=== PATIENT | female | born 1930 | race Caucasian/White ===

== ENCOUNTER → 2016-07-25 | Outpatient (REF) | payer MEDICARE ==
[~2016-07-25] MED LIST: /WARF25TA; ACET-654 PO; ACET65TA; AMOX500C PO; ASCO500T PO; BISA5TA; CALC600T34 PO; CALCCHW12; COLA100C2; DIGO0.12 PO; DOCU10CA PO; DRIS50002 PO; DULC10SU2 PR; ENEMENE3 PR; FLEEENE4 PR; HYDR12.55 PO; HYDR25TA6; LISI5TAB; LOPE2TAB PO; LOPR1TAB6 PO; LOSA50TA20 PO; MAGN400T5 PO; META28.35 PO; METAMUCIL; MILKSUS PO; MULTCAP PO; NYST100024 TOP; PERC5TAB8; PERC7.5T8; SIMV10TA2 PO; THERGRAN; TOPR25TA PO; TRAZ50TA4 PO; TYLE1TAB5 PO; TYLE500T78 PO; VITA-130 PO; VITA100T5; VITA200C; VITA400C2 PO; XARE15TA PO; ZOCO10TA PO
[2016-07-25 10:15] LABS: MEAN CORPUSCULAR HEMOGLOBIN 32.4 pg (27.0-33.0); MEAN CORPUSCULAR HGB CONC 32.7 g/dl (32.0-36.5); RED CELL DISTRIBUTION WIDTH 13.5 % (11.5-14.5); WHITE BLOOD COUNT 6.5 K/mm3 (4.0-10.0)
== END ==
PROVIDERS: ATTEND Internal Medicine
DX: Z51.81 Encounter for therapeutic drug level monitoring (principal); Z79.01 Long term (current) use of anticoagulants

== ENCOUNTER → 2016-08-11 | Outpatient (REF) | payer MEDICARE ==
[2016-08-11 15:17] LABS: ALBUMIN 3.5 GM/DL (3.2-5.2); ALBUMIN/GLOBULIN RATIO 0.88 (1.00-1.93); ALKALINE PHOSPHATASE 75 U/L (45-117); ALT/SGPT 20 U/L (12-78); ANION GAP 9 MEQ/L (8-16); AST/SGOT 17 U/L (15-37); BILIRUBIN,DIRECT 0.2 MG/DL (0.0-0.2); BILIRUBIN,TOTAL 0.6 MG/DL (0.2-1.0); BLOOD UREA NITROGEN 20 MG/DL (7-18); CALCIUM LEVEL 8.4 MG/DL (8.8-10.2); CARBON DIOXIDE LEVEL 29 MEQ/L (21-32); CHLORIDE LEVEL 103 MEQ/L (98-107); CREATININE FOR GFR 0.91 MG/DL (0.55-1.02); GLOMERULAR FILTRATION RATE > 60.0 (>32); GLUCOSE, FASTING 130 MG/DL (83-110); POTASSIUM SERUM 4.5 MEQ/L (3.5-5.1); SODIUM LEVEL 141 MEQ/L (136-145); TOTAL PROTEIN 7.5 GM/DL (6.4-8.2)
== END ==
PROVIDERS: ATTEND Internal Medicine
DX: R63.5 Abnormal weight gain (principal)

== ENCOUNTER → 2016-08-22 | Outpatient (REF) | payer MEDICARE ==
[2016-08-22 10:57] LABS: MEAN CORPUSCULAR HEMOGLOBIN 31.7 pg (27.0-33.0); MEAN CORPUSCULAR HGB CONC 32.7 g/dl (32.0-36.5); MEAN CORPUSCULAR VOLUME 97.1 fl (80.0-96.0); RED CELL DISTRIBUTION WIDTH 12.9 % (11.5-14.5); WHITE BLOOD COUNT 8.4 K/mm3 (4.0-10.0)
== END ==
PROVIDERS: ATTEND Internal Medicine
DX: Z51.81 Encounter for therapeutic drug level monitoring (principal); Z70.1 Counseling related to patient's sexual behavior and orientation

== ENCOUNTER → 2016-09-18 | Outpatient (REF) | payer MEDICARE ==
[~2016-09-18] MED LIST changes: +ALBU83IN INH; +LASI20TA PO; +LASI40TA PO; +MUCI600T34 PO
[2016-09-18 11:22] LABS: MEAN CORPUSCULAR HEMOGLOBIN 32.4 pg (27.0-33.0); MEAN CORPUSCULAR HGB CONC 32.9 g/dl (32.0-36.5); MEAN CORPUSCULAR VOLUME 98.3 fl (80.0-96.0); RED CELL DISTRIBUTION WIDTH 12.5 % (11.5-14.5)
[2016-09-18 12:04] LABS: CALCIUM LEVEL 8.5 MG/DL (8.8-10.2); CREATININE FOR GFR 0.99 MG/DL (0.55-1.02); GLOMERULAR FILTRATION RATE 56.9 (>32); POTASSIUM SERUM 4.4 MEQ/L (3.5-5.1)
--- NOTE | 2016-09-18 17:06 | REP ---
AP chest x-ray: Single view. History: Cough and wheezing. Comparison chest x-ray is from February 02, 2015. Findings: Cardiomegaly is observed unchanged. Interstitial markings are somewhat crowded at the bases particularly in the left base. The aorta is tortuous. Pulmonary vasculature is not increased. No pleural effusion is seen. The patient's face and chin overlie the apices today. Impression: Prominent interstitial markings in the left base. These are suggestive of Iman B lines consistent with some degree of CHF. No acute infiltrate is appreciated. Signed by Samson Mason MD 09/18/2016 07:20 P
== END ==
PROVIDERS: ATTEND Internal Medicine
DX: R05 Cough (principal); R06.2 Wheezing; I10 Essential (primary) hypertension

== ENCOUNTER → 2016-09-19 | Outpatient (REF) | payer MEDICARE | PROVIDERS: ATTEND Internal Medicine | DX: E56.9 Vitamin deficiency, unspecified (principal) ==

== ENCOUNTER 2016-09-21 17:36 | Emergency (ER) | payer MEDICARE ==
[~2016-09-21] VITALS: Ht 160 cm; Wt 87.1 kg
[~2016-09-21 17:36] MED LIST changes: -ALBU83IN INH; -LASI20TA PO; -LASI40TA PO; -MUCI600T34 PO
[2016-09-21] MEDS ORDERED: ALBU83IN INH (18:13)
[2016-09-21] MEDS ORDERED: LASI20TA PO (18:13)
[2016-09-21] MEDS ORDERED: LASI40TA PO (18:13)
[2016-09-21 18:14] LABS: BASO % 0.3 % (0.0-1.0); EOS # 0.2 K/mm3 (0.0-0.50); EOS % 2.3 % (0.0-3.0); LARGE UNSTAINED CELL # 0.1 K/mm3 (0.0-0.4); LARGE UNSTAINED CELL % 1.8 % (0.0-4.0); LYMPH % 24.4 % (24.0-44.0); MEAN CORPUSCULAR HEMOGLOBIN 31.5 pg (27.0-33.0); MEAN CORPUSCULAR HGB CONC 32.8 g/dl (32.0-36.5); MEAN CORPUSCULAR VOLUME 96.2 fl (80.0-96.0); MONO # 0.5 K/mm3 (0.0-0.8); MONO % 5.9 % (0.0-5.0); NEUTROPHILS % 65.2 % (36.0-66.0); PLATELET COUNT, AUTOMATED 215 k/mm3 (150-450); RED CELL DISTRIBUTION WIDTH 12.6 % (11.5-14.5); WHITE BLOOD COUNT 7.7 K/mm3 (4.0-10.0)
[2016-09-21] MEDS ORDERED: MUCI600T34 PO (18:17)
[2016-09-21 18:19] LABS: ABG BASE EXCESS 4.6 (-2.0-2.0); ABG HCO3 29.5 MEQ/L (22.0-26.0); ABG PARTIAL PRESSURE CO2 44.9 mmHg (35.0-45.0); ABG PARTIAL PRESSURE O2 75.6 mmHg (75.0-100.0); ABG STANDARD HCO3 28.6 MEQ/L (22.0-26.0); ABG TOTAL CO2 30.9 MEQ/L (23.0-31.0); ABG pH (ARTERIAL) 7.436 UNITS (7.350-7.450)
[2016-09-21 18:20] LABS: INR 1.94
[2016-09-21 18:30] VITALS: BP 119/65
[2016-09-21] MEDS ORDERED: METOPROLOL TART 25 MG TABLET PO ONE (18:30)
[2016-09-21 18:34] LABS: ANION GAP 9 MEQ/L (8-16); BLOOD UREA NITROGEN 25 MG/DL (7-18); CALCIUM LEVEL 8.6 MG/DL (8.8-10.2); CARBON DIOXIDE LEVEL 32 MEQ/L (21-32); CHLORIDE LEVEL 101 MEQ/L (98-107); CREATININE FOR GFR 0.87 MG/DL (0.55-1.02); FREE T4 1.22 NG/DL (0.76-1.46); GLOMERULAR FILTRATION RATE > 60.0 (>32); GLUCOSE, FASTING 147 MG/DL (83-110); POTASSIUM SERUM 3.7 MEQ/L (3.5-5.1); SODIUM LEVEL 142 MEQ/L (136-145)
--- NOTE | 2016-09-21 18:52 | REP ---
CHEST, PA AND LATERAL: COMPARISON: 09/18/2016 The technique utilized in obtaining the radiograph has magnified the cardiac silhouette and accentuated the interstitial markings. Cardiomegaly, status quo. Increased interstitial markings accentuated by technique, status quo. No new abnormal opacities. No change in the osseous structures. IMPRESSION: No significant change from the prior exam. There is cardiomegaly and evidence to suggest mild interstitial edema. Signed by Willie Cabrera DO 09/21/2016 07:18 P
[2016-09-21 20:12] LABS: DIGOXIN LEVEL < 0.1 NG/ML (0.5-2.0)
[2016-09-21 23:01] VITALS: BP 123/71
--- NOTE | 2016-09-22 08:54 | ECGEPIP ---
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
== END 2016-09-21 23:03 | disposition home or self-care (01) ==
LOC: EDBD 17:36 → M ED 17:54
DX: I48.91 Unspecified atrial fibrillation (principal); R05 Cough; I51.7 Cardiomegaly; I10 Essential (primary) hypertension; E78.5 Hyperlipidemia, unspecified; K58.9 Irritable bowel syndrome, unspecified; M81.0 Age-related osteoporosis without current pathological fracture; F03.90 Unspecified dementia, unspecified severity, without behavioral disturbance, psychotic disturbance, mood disturbance, and anxiety; Z79.01 Long term (current) use of anticoagulants; Z79.899 Other long term (current) drug therapy

== ENCOUNTER → 2016-09-22 | Outpatient (REF) | payer MEDICARE ==
[~2016-09-22] MED LIST changes: +ALBU83IN INH; +LASI20TA PO; +LASI40TA PO; +MUCI600T34 PO
[2016-09-22 11:09] LABS: ANION GAP 9 MEQ/L (8-16); BLOOD UREA NITROGEN 21 MG/DL (7-18); CALCIUM LEVEL 8.5 MG/DL (8.8-10.2); CARBON DIOXIDE LEVEL 30 MEQ/L (21-32); CHLORIDE LEVEL 105 MEQ/L (98-107); CREATININE FOR GFR 0.79 MG/DL (0.55-1.02); GLOMERULAR FILTRATION RATE > 60.0 (>32); GLUCOSE, FASTING 119 MG/DL (83-110); POTASSIUM SERUM 4.1 MEQ/L (3.5-5.1); SODIUM LEVEL 144 MEQ/L (136-145)
== END ==
PROVIDERS: ATTEND Internal Medicine
DX: I50.9 Heart failure, unspecified (principal)

== ENCOUNTER → 2016-09-25 | Outpatient (REF) | payer MEDICARE ==
[2016-09-25 13:43] LABS: MEAN CORPUSCULAR HEMOGLOBIN 32.6 pg (27.0-33.0); MEAN CORPUSCULAR HGB CONC 33.9 g/dl (32.0-36.5); RED CELL DISTRIBUTION WIDTH 12.5 % (11.5-14.5); WHITE BLOOD COUNT 7.6 K/mm3 (4.0-10.0)
[2016-09-25 14:00] LABS: ALBUMIN 3.4 GM/DL (3.2-5.2); ALBUMIN/GLOBULIN RATIO 0.87 (1.00-1.93); ALKALINE PHOSPHATASE 73 U/L (45-117); ALT/SGPT 25 U/L (12-78); ANION GAP 7 MEQ/L (8-16); AST/SGOT 21 U/L (15-37); BILIRUBIN,TOTAL 0.6 MG/DL (0.2-1.0); BLOOD UREA NITROGEN 20 MG/DL (7-18); CALCIUM LEVEL 8.6 MG/DL (8.8-10.2); CARBON DIOXIDE LEVEL 32 MEQ/L (21-32); CHLORIDE LEVEL 102 MEQ/L (98-107); CHOLESTEROL LEVEL 131 MG/DL (<200); CREATININE FOR GFR 0.82 MG/DL (0.55-1.02); GLOMERULAR FILTRATION RATE > 60.0 (>32); GLUCOSE, FASTING 117 MG/DL (83-110); POTASSIUM SERUM 4.2 MEQ/L (3.5-5.1); SODIUM LEVEL 141 MEQ/L (136-145); TOTAL PROTEIN 7.3 GM/DL (6.4-8.2); TRIGLYCERIDES LEVEL 125 MG/DL (<150)
== END ==
PROVIDERS: ATTEND Internal Medicine
DX: I50.9 Heart failure, unspecified (principal)

== ENCOUNTER → 2016-10-24 | Outpatient (REF) | payer MEDICARE ==
[2016-10-24 11:08] LABS: MEAN CORPUSCULAR HEMOGLOBIN 30.3 pg (27.0-33.0); MEAN CORPUSCULAR HGB CONC 31.7 g/dl (32.0-36.5); MEAN CORPUSCULAR VOLUME 95.4 fl (80.0-96.0); RED CELL DISTRIBUTION WIDTH 12.6 % (11.5-14.5); WHITE BLOOD COUNT 7.2 K/mm3 (4.0-10.0)
== END ==
PROVIDERS: ATTEND Internal Medicine
DX: Z51.81 Encounter for therapeutic drug level monitoring (principal); Z79.01 Long term (current) use of anticoagulants

== ENCOUNTER → 2016-11-16 | Outpatient (REF) | payer MEDICARE ==
--- NOTE | 2016-11-16 15:02 | REP ---
RIGHT FEMUR SERIES: Two single view. HISTORY: Injury in a fall. FINDINGS: A single AP view of the mid right femur is presented. There is a hip prosthesis stem in the proximal femur and a distal femur prosthetic component from the knee replacement is seen. No fracture is noted on this single AP view. Signed by Samson Mason MD 11/16/2016 03:59 P
--- NOTE | 2016-11-16 15:02 | REP ---
RIGHT KNEE SERIES: Two views. HISTORY: Decreased range of motion. Status post right knee replacement. Pain after a fall. FINDINGS: Prosthetic components appear well aligned with respect to each other and their [place] bones. No fractures seen. There is some diffuse osteopenia. IMPRESSION: No fracture or other acute bony abnormality. Signed by Samson Mason MD 11/16/2016 03:59 P
--- NOTE | 2016-11-16 15:04 | REP ---
AP VIEW OF THE PELVIS: Single view. HISTORY: Injury in a fall. FINDINGS: Bilateral femoral head replacements are seen. No hip or pelvic fracture is observed on this single AP view. Signed by Samson Mason MD 11/16/2016 03:59 P
== END ==
PROVIDERS: ATTEND Internal Medicine
DX: M25.551 Pain in right hip (principal); M25.552 Pain in left hip; Z96.653 Presence of artificial knee joint, bilateral

== ENCOUNTER → 2016-11-22 | Outpatient (REF) | payer MEDICARE ==
[2016-11-22 11:06] LABS: MEAN CORPUSCULAR HEMOGLOBIN 32.4 pg (27.0-33.0); MEAN CORPUSCULAR HGB CONC 33.1 g/dl (32.0-36.5); MEAN CORPUSCULAR VOLUME 97.9 fl (80.0-96.0); WHITE BLOOD COUNT 6.7 K/mm3 (4.0-10.0)
== END ==
PROVIDERS: ATTEND Internal Medicine
DX: Z79.899 Other long term (current) drug therapy (principal)

== ENCOUNTER → 2016-12-26 | Outpatient (REF) | payer MEDICARE ==
[2016-12-26 11:06] LABS: MEAN CORPUSCULAR HEMOGLOBIN 32.1 pg (27.0-33.0); MEAN CORPUSCULAR HGB CONC 34.2 g/dl (32.0-36.5); MEAN CORPUSCULAR VOLUME 93.9 fl (80.0-96.0); RED CELL DISTRIBUTION WIDTH 13.7 % (11.5-14.5); WHITE BLOOD COUNT 6.8 K/mm3 (4.0-10.0)
== END ==
PROVIDERS: ATTEND Internal Medicine
DX: Z51.81 Encounter for therapeutic drug level monitoring (principal); Z79.01 Long term (current) use of anticoagulants

== ENCOUNTER → 2017-01-23 | Outpatient (REF) | payer MEDICARE ==
[~2017-01-23] MED LIST changes: -ACET-654 PO; +ACET1TAB17 PO; +ENEMENE16 PR; -ENEMENE3 PR; +LOPE2CAP PO; -LOPE2TAB PO; -MUCI600T34 PO; +MUCI600T37 PO; -NYST100024 TOP; +NYST1POW9 TOP; +TRAZ50TA11 PO; -TRAZ50TA4 PO; -VITA-130 PO; -VITA400C2 PO; +VITA400C7 PO; +VITA500T PO
[2017-01-23 09:31] LABS: MEAN CORPUSCULAR HEMOGLOBIN 31.8 pg (27.0-33.0); MEAN CORPUSCULAR HGB CONC 33.7 g/dl (32.0-36.5); MEAN CORPUSCULAR VOLUME 94.4 fl (80.0-96.0); RED CELL DISTRIBUTION WIDTH 13.9 % (11.5-14.5); WHITE BLOOD COUNT 6.2 K/mm3 (4.0-10.0)
== END ==
PROVIDERS: ATTEND Internal Medicine
DX: Z51.81 Encounter for therapeutic drug level monitoring (principal); Z79.01 Long term (current) use of anticoagulants

== ENCOUNTER → 2017-02-21 | Outpatient (REF) | payer MEDICARE ==
[2017-02-21 11:41] LABS: MEAN CORPUSCULAR HEMOGLOBIN 31.9 pg (27.0-33.0); MEAN CORPUSCULAR HGB CONC 33.4 g/dl (32.0-36.5); MEAN CORPUSCULAR VOLUME 95.5 fl (80.0-96.0); RED CELL DISTRIBUTION WIDTH 14.2 % (11.5-14.5); WHITE BLOOD COUNT 6.5 K/mm3 (4.0-10.0)
== END ==
PROVIDERS: ATTEND Internal Medicine
DX: Z79.899 Other long term (current) drug therapy (principal)

== ENCOUNTER → 2017-03-27 | Outpatient (REF) | payer MEDICARE ==
[2017-03-27 10:23] LABS: MEAN CORPUSCULAR HGB CONC 34.2 g/dl (32.0-36.5); MEAN CORPUSCULAR VOLUME 96.4 fl (80.0-96.0); RED CELL DISTRIBUTION WIDTH 13.3 % (11.5-14.5); WHITE BLOOD COUNT 6.8 K/mm3 (4.0-10.0)
[2017-03-27 10:49] LABS: ALBUMIN 3.4 GM/DL (3.2-5.2); ALBUMIN/GLOBULIN RATIO 0.87 (1.00-1.93); ALKALINE PHOSPHATASE 75 U/L (45-117); ALT/SGPT 21 U/L (12-78); ANION GAP 10 MEQ/L (8-16); AST/SGOT 16 U/L (15-37); BILIRUBIN,TOTAL 0.6 MG/DL (0.2-1.0); BLOOD UREA NITROGEN 14 MG/DL (7-18); CALCIUM LEVEL 8.5 MG/DL (8.8-10.2); CARBON DIOXIDE LEVEL 28 MEQ/L (21-32); CHLORIDE LEVEL 104 MEQ/L (98-107); CREATININE FOR GFR 0.81 MG/DL (0.55-1.02); GLOMERULAR FILTRATION RATE > 60.0 (>32); GLUCOSE, FASTING 113 MG/DL (83-110); POTASSIUM SERUM 4.4 MEQ/L (3.5-5.1); SODIUM LEVEL 142 MEQ/L (136-145); TOTAL PROTEIN 7.3 GM/DL (6.4-8.2)
== END ==
PROVIDERS: ATTEND Internal Medicine
DX: I50.9 Heart failure, unspecified (principal); Z79.899 Other long term (current) drug therapy

== ENCOUNTER → 2017-04-25 | Outpatient (REF) | payer MEDICARE | PROVIDERS: ATTEND Internal Medicine | DX: K52.9 Noninfective gastroenteritis and colitis, unspecified (principal) ==

== ENCOUNTER → 2018-02-19 | Outpatient (REF) | payer MEDICARE ==
[2018-02-19 09:56] LABS: HEMATOCRIT 43.4 % (36.0-47.0); HEMOGLOBIN 13.9 g/dl (12.0-15.5); MEAN CORPUSCULAR HEMOGLOBIN 30.6 pg (27.0-33.0); MEAN CORPUSCULAR VOLUME 95.6 fl (80.0-96.0); PLATELET COUNT, AUTOMATED 223 10^3/uL (150-450); RED BLOOD COUNT 4.54 10^6/uL (4.00-5.40); RED CELL DISTRIBUTION WIDTH 13.2 % (11.5-14.5); WHITE BLOOD COUNT 7.4 10^3/uL (4.0-10.0)
[2018-02-19 10:16] LABS: ANION GAP 6 MEQ/L (8-16); BLOOD UREA NITROGEN 18 MG/DL (7-18); CALCIUM LEVEL 8.6 MG/DL (8.8-10.2); CARBON DIOXIDE LEVEL 30 MEQ/L (21-32); CHLORIDE LEVEL 106 MEQ/L (98-107); CREATININE FOR GFR 0.83 MG/DL (0.55-1.30); GLOMERULAR FILTRATION RATE > 60.0 (>32); GLUCOSE, FASTING 95 MG/DL (70-100); POTASSIUM SERUM 4.2 MEQ/L (3.5-5.1); SODIUM LEVEL 142 MEQ/L (136-145)
== END ==
DX: I48.91 Unspecified atrial fibrillation (principal); I50.9 Heart failure, unspecified; Z79.01 Long term (current) use of anticoagulants
CPT/HCPCS: 80048

== ENCOUNTER → 2018-10-28 | Outpatient (REF) | payer MEDICARE ==
[~2018-10-28] MED LIST changes: -/WARF25TA; -ACET1TAB17 PO; +ACET1TAB55 PO; -CALC600T34 PO; +COUM1TAB18; -DRIS50002 PO; +DRIS50003 PO; -ENEMENE16 PR; +ENEMENE4 PR; -LASI20TA PO; +LASI20TA3 PO; -LASI40TA PO; +LASI40TA9 PO; -LOSA50TA20 PO; +LOSA50TA88 PO; +MILK120011 PO; -MILKSUS PO; +TRAZ-160 PO; -TRAZ50TA11 PO; +[UNRECOGNIZED DRUG - CODE] PO
--- NOTE | 2018-10-28 17:03 | REP ---
AP, LATERAL RIGHT FOOT, TWO VIEWS: HISTORY: Pain. Postoperative change is present in the first metatarsal. A metal pin is present. There is no acute fracture or dislocation. The joint space is normal in appearance. An osteophyte is present on the posterior calcaneus. IMPRESSION:There is no acute fracture or dislocation. Electronically Signed by Bin Huerta MD 10/29/2018 08:16 A
--- NOTE | 2018-10-28 17:15 | REP ---
RIGHT FOOT, TWO VIEWS: HISTORY: Pain. Postoperative change is present in the 1st metatarsal. A metal pin is present. There is no acute fracture or dislocation. There is narrowing of the 1st metatarsal phalangeal joint space with associated osteophyte formation. The remaining joint spaces are normal in appearance. An osteophyte is present on the posterior calcaneus. IMPRESSION:There is no acute fracture or dislocation. Electronically Signed by Bin Huerta MD 10/29/2018 08:16 A
== END ==
PROVIDERS: ATTEND Internal Medicine
DX: M79.671 Pain in right foot (principal)

== ENCOUNTER 2018-11-29 08:01 | Inpatient (IN) | payer MEDICARE ==
[~2018-11-29] VITALS: Ht 160 cm; Wt 78.7 kg
[2018-11-29] MEDS ORDERED: SODIGEL (09:10)
[2018-11-29] MEDS ORDERED: ACET-907 PO (09:10)
[2018-11-29] MEDS ORDERED: MOM30SS PO (09:10)
[2018-11-29] MEDS ORDERED: CHLO0.124 MT (09:10)
[2018-11-29] MEDS ORDERED: METOPROLOL TART 50 MG TAB PO ONE (09:30)
[2018-11-29 09:31] LABS: BASO % 0.3 % (0.0-1.0); EOS % 0.2 % (0.0-3.0); HEMATOCRIT 44.6 % (36.0-47.0); HEMOGLOBIN 14.8 g/dl (12.0-15.5); LYMPH # 1.8 10^3/uL (1.5-4.5); LYMPH % 17.9 % (24.0-44.0); MEAN CORPUSCULAR HEMOGLOBIN 31.8 pg (27.0-33.0); MEAN CORPUSCULAR HGB CONC 33.2 g/dl (32.0-36.5); MEAN CORPUSCULAR VOLUME 95.7 fl (80.0-96.0); MONO # 0.8 10^3/uL (0.0-0.8); MONO % 7.7 % (0.0-5.0); NEUTROPHILS # 7.5 10^3/uL (1.8-7.7); NEUTROPHILS % 73.6 % (36.0-66.0); PLATELET COUNT, AUTOMATED 223 10^3/uL (150-450); RED BLOOD COUNT 4.66 10^6/uL (4.00-5.40); WHITE BLOOD COUNT 10.2 10^3/uL (4.0-10.0)
[2018-11-29 09:49] LABS: ERYTHROCYTE SEDIMENTATION RATE 35 mm/hr (0-42)
[2018-11-29 10:10] LABS: ALBUMIN 3.2 GM/DL (3.2-5.2); ALT/SGPT 29 U/L (12-78); BILIRUBIN,TOTAL 0.6 MG/DL (0.2-1.0); BLOOD UREA NITROGEN 19 MG/DL (7-18); C REACTIVE PROTEIN QUANTITATIV 1.01 MG/DL (0.00-0.30); CALCIUM LEVEL 8.3 MG/DL (8.8-10.2); CARBON DIOXIDE LEVEL 27 MEQ/L (21-32); CHLORIDE LEVEL 108 MEQ/L (98-107); CREATININE FOR GFR 0.82 MG/DL (0.55-1.30); GLOMERULAR FILTRATION RATE > 60.0 (>32); GLUCOSE, FASTING 118 MG/DL (70-100); SODIUM LEVEL 143 MEQ/L (136-145); TOTAL PROTEIN 7.5 GM/DL (6.4-8.2)
--- NOTE | 2018-11-29 10:12 | REP ---
Clinical: Swelling. Technique: AP, lateral, bilateral oblique views of the right hand. Findings: Generalized age-related osteopenia and degenerative changes are appreciated. No obvious acute fracture dislocation identified. No subcutaneous emphysema or foreign body. Impression: Osteopenia and degenerative changes with soft tissue swelling. No obvious acute fracture or dislocation. Electronically Signed by Ki Posadas MD 11/29/2018 10:04 A
--- NOTE | 2018-11-29 12:44 | HPE ---
DATE OF ADMISSION: 11/29/2018 ADMITTING PHYSICIAN: The hospitalist group. ATTENDING PHYSICIAN: Dr. German HISTORY: Edie Marroquin is an 88-year-old nonverbal patient who came to the emergency room after she was found to have a swollen right hand with both hemorrhagic and serous bullae, as well as some linear vesicles. She apparently woke up with this. The patient is nonverbal so she is not able to describe at all what happened. She did have some vesicles on her right shoulder as well, raising the possibility that this might be an unusual presentation for herpes zoster. There has been no known trauma. She has a history of atrial fibrillation and has severe dementia and is nonverbal, hypertension, osteoporosis, hyperlipidemia, irritable bowel syndrome. She is on chronic anticoagulant therapy for thromboembolic prophylaxis with Xarelto. SURGICAL HISTORY: Knee arthroscopy, right hip arthroplasty, cholecystectomy, bunion surgery, pituitary resection, hysterectomy, cataract surgery. ALLERGIES: None known. MEDICATIONS: - furosemide 20 mg twice a day - metoprolol 50 mg three times a day - Xarelto 15 mg daily REVIEW OF SYSTEMS: Not obtainable. PHYSICAL EXAMINATION: Afebrile. 137/83. Heart rate is between 90 and 120, it is around 90 when she is at rest. GENERAL APPEARANCE: Elderly, lying in bed. 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 No facial droop or weakness. LUNGS: Clear. HEART: Regular rate and rhythm, rate around 90 to 100. ABDOMEN: Soft, nontender. No masses. EXTREMITIES: No peripheral edema. Over her left hip there is an indurated plaque that is about 4 cm x 3 cm. There are no vesicles over this. Her right upper extremity has denuded erosion over the right shoulder, apparently this was a vesicle that was unroofed and cultured. Distally, she has a large hemorrhagic bullous lesion on the palm of the hand, dorsum of the hand has linear vesicles, many of which have coalesced into large bullae. A few have erupted and are denuded. There is no purulence. LABORATORY DATA: White count 10.2, hemoglobin 14.8, platelets are 223. Sodium 143, potassium 4.0, BUN 19, creatinine 0.8, glucose 118. IMPRESSION: 1. Bullous eruption of the right upper extremity with a large hemorrhagic bullous lesion on the palm and linear vesicles over the dorsum of the hand and shoulder. Etiology of this is unknown. Linear vesicles are typically to contact dermatitis, but herpetic lesions can present similarly. She is anticoagulated and I have seen herpes zoster present with hemorrhagic bullae in the past. She has a low grade white count. I will be admitting her to the hospital and starting her on empiric antibiotics with Ancef 1 gram IV every 8 hours and starting empiric treatment for herpes zoster with Famvir or whatever antiviral the hospital has on formulary. We will get an ultrasound of the arm to rule out deep vein thrombosis (DVT), though I do not think that this is a DVT. The most striking aspect of the lesions is the linear nature of these vesicles across the dorsum of the hand. 2. Atrial fibrillation. Her rate is controlled. Continue current medications. Continue her Xarelto for thromboembolic prophylaxis. 3. Severe dementia. She is apparently at her baseline with this.
[2018-11-29] MEDS ORDERED: MOM 30ML SUSPENSION UDC PO PRN (12:45)
[2018-11-29] MEDS ORDERED: BISACODYL 10 MG SUPP PR PRN (12:45)
--- NOTE | 2018-11-29 15:28 | REP ---
Right upper extremity duplex Doppler venous ultrasound. Real time compression and duplex Doppler evaluation of the right upper extremity deep venous system is performed. The right subclavian, jugular, axillary, brachial, basilic and cephalic veins are fully compressible where accessible with transducer pressure, and demonstrate no intraluminal thrombus and normal venous waveforms. There is no evidence of deep venous thrombosis. Impression: No evidence of deep venous thrombosis of the right upper extremity deep vein system. Electronically Signed by Danny Haley MD 11/29/2018 03:20 P
[2018-11-29 15:40] VITALS: BP 120/71
[2018-11-29] MEDS: RIVAROXABAN 15 MG TAB (XARELTO) PO SCH (17:42)
[2018-11-29] MEDS: FUROSEMIDE 20 MG TAB PO SCH (17:42)
[2018-11-29] MEDS: METOPROLOL TART 50 MG TAB PO SCH ×2 (17:43→21:00)
[2018-11-29] MEDS: ceFAZolin SOD 1 GM in D5W MINI-BAG PLUS 50 ML IV SCH ×2 (17:44→22:10)
[2018-11-29] MEDS: methylPREDNISolone INJ 125 MG/2 ML VIAL (J2930) IV SCH (18:55)
--- NOTE | 2018-11-29 20:51 | ECGEPIP ---
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
[2018-11-29] MEDS: FAMCICLOVIR 500 MG TAB PO SCH (21:00)
[2018-11-29] MEDS: CHLORHEXIDINE GLUCONATE 0.12 % 15ML UDC (PERIDEX ORAL RINSE) MT SCH (21:00)
[2018-11-29 22:00] VITALS: BP 103/51
[2018-11-29] MEDS: SODIUM CHLORIDE 0.9% NASAL GEL 15GM (AYR) SCH (22:11)
[2018-11-30] MEDS: methylPREDNISolone INJ 125 MG/2 ML VIAL (J2930) IV SCH ×3 (05:18→18:06)
[2018-11-30] MEDS: ceFAZolin SOD 1 GM in D5W MINI-BAG PLUS 50 ML IV SCH ×3 (05:19→21:13)
[2018-11-30 06:00] VITALS: BP 137/83
[2018-11-30 06:43] LABS: BASO % 0.1 % (0.0-1.0); HEMATOCRIT 42.8 % (36.0-47.0); HEMOGLOBIN 14.1 g/dl (12.0-15.5); LYMPH # 1.2 10^3/uL (1.5-4.5); LYMPH % 14.7 % (24.0-44.0); MEAN CORPUSCULAR HEMOGLOBIN 30.8 pg (27.0-33.0); MEAN CORPUSCULAR HGB CONC 32.9 g/dl (32.0-36.5); MEAN CORPUSCULAR VOLUME 93.4 fl (80.0-96.0); MONO # 0.1 10^3/uL (0.0-0.8); MONO % 1.5 % (0.0-5.0); NEUTROPHILS % 83.3 % (36.0-66.0); PLATELET COUNT, AUTOMATED 227 10^3/uL (150-450); RED BLOOD COUNT 4.58 10^6/uL (4.00-5.40); WHITE BLOOD COUNT 8.4 10^3/uL (4.0-10.0)
[2018-11-30 07:10] LABS: BLOOD UREA NITROGEN 19 MG/DL (7-18); CALCIUM LEVEL 8.1 MG/DL (8.8-10.2); CARBON DIOXIDE LEVEL 25 MEQ/L (21-32); CHLORIDE LEVEL 108 MEQ/L (98-107); CREATININE FOR GFR 0.85 MG/DL (0.55-1.30); GLOMERULAR FILTRATION RATE > 60.0 (>32); GLUCOSE, FASTING 174 MG/DL (70-100); POTASSIUM SERUM 4.1 MEQ/L (3.5-5.1); SODIUM LEVEL 141 MEQ/L (136-145)
[2018-11-30] MEDS: SODIUM CHLORIDE 0.9% NASAL GEL 15GM (AYR) SCH ×2 (09:00→21:13)
[2018-11-30] MEDS: FUROSEMIDE 20 MG TAB PO SCH ×2 (10:12→17:43)
[2018-11-30] MEDS: METOPROLOL TART 50 MG TAB PO SCH ×3 (10:12→21:00)
[2018-11-30] MEDS: CHLORHEXIDINE GLUCONATE 0.12 % 15ML UDC (PERIDEX ORAL RINSE) MT SCH ×2 (10:12→21:00)
[2018-11-30] MEDS: FAMCICLOVIR 500 MG TAB PO SCH ×2 (10:13→21:00)
[2018-11-30] MEDS: ACETAMINOPHEN TAB 650MG DOSE (2X325MG) PO PRN (11:33)
--- NOTE | 2018-11-30 11:57 | IPNPDOC ---
Date Seen The patient was seen on 11/30/18. Progress Note SUBJECTIVE: 88 Y female, h/o severe dementia brought from [facility] with right hand swelling and bullae admitted for possible virus or bacterial infection no events overnight Review of systems not available due to severe dementia OBJECTIVE PHYSICAL EXAMINATION: VITAL SIGNS: Please see below. GENERAL: non verbal, very demented, family member at bedside HEENT: atraumatic CARDIOVASCULAR: s1s2 irregular not tachycardia RESPIRATORY: clear no rales no wheezing ABDOMINAL: soft BS positive nontender EXTREMITIES: swelling/redness with big bullae in right hand, there is a small rash in right shoulder area NEUROLOGICAL: non focal PSYCHOLOGICAL:demented without behavior disturbance LABORATORY DATA, IMAGING STUDIES, MICROBIOLOGY: Please see below. DVT prophylaxis ordered?: [y] ASSESSMENT AND PLAN: 1. Bullous eruption of the right hand a large hemorrhagic bullous lesion Etiology of this is unknown. DD including virus infection like herpes ID was consulted (I did not see consultation note yet) will continue abx, antivirus and steroid will continue to monitor 2. Atrial fibrillation, rate control and on Xarelto 3. Severe dementia, stable VS, I&O, [facility]H, [facility] Vital Signs/I&O Vital Signs Date Time Temp Pulse Resp B/P (MAP) Pulse Ox O2 Delivery O2 Flow Rate FiO2 11/30/18 10:12 90 113/72 11/30/18 06:00 97.5 20 94 11/29/18 20:00 2.0 11/29/18 15:40 Room Air I&O- Last 24 Hours up to 6 AM 11/30/18 06:00 Intake Total 100 ml Balance 100 ml Laboratory Data 24H LABS Laboratory Tests 2 11/30/18 06:17: Immature Granulocyte % (Auto) 0.4, White Blood Count 8.4, Red Blood Count 4.58, Hemoglobin 14.1, Hematocrit 42.8, Mean Corpuscular Volume 93.4, Mean Corpuscular Hemoglobin 30.8, Mean Corpuscular Hemoglobin Concent 32.9, Red Cell Distribution Width 13.0, Platelet Count 227, Neutrophils (%) (Auto) 83.3H, Lymphocytes (%) (Auto) 14.7L, Monocytes (%) (Auto) 1.5, Eosinophils (%) (Auto) 0.0, Basophils (%) (Auto) 0.1, Neutrophils # (Auto) 7.0, Lymphocytes # (Auto) 1.2L, Monocytes # (Auto) 0.1, Eosinophils # (Auto) 0.0, Basophils # (Auto) 0.0, Nucleated Red Blood Cells % (auto) 0.0, Anion Gap 8, Glomerular Filtration Rate > 60.0, Blood Urea Nitrogen 19H, Creatinine 0.85, Sodium Level 141, Potassium Level 4.1, Chloride Level 108H, Carbon Dioxide Level 25, Calcium Level 8.1L CBC/BMP Laboratory Tests 11/30/18 06:17 Red Blood Count 4.58, Mean Corpuscular Volume 93.4, Mean Corpuscular Hemoglobin 30.8, Mean Corpuscular Hemoglobin Concent 32.9, Red Cell Distribution Width 13.0, Neutrophils (%) (Auto) 83.3 H, Lymphocytes (%) (Auto) 14.7 L, Monocytes (%) (Auto) 1.5, Eosinophils (%) (Auto) 0.0, Basophils (%) (Auto) 0.1, Neutrophils # (Auto) 7.0, Lymphocytes # (Auto) 1.2 L, Monocytes # (Auto) 0.1, Eosinophils # (Auto) 0.0, Basophils # (Auto) 0.0, Calcium Level 8.1 L Microbiology Microbiology 11/29/18 Blood Culture - Preliminary, Resulted No growth after 24 hours . All specim... 11/29/18 Blood Culture - Preliminary, Resulted No growth after 24 hours . All specim... 11/29/18 Viral Culture, Received Pending ARELI INFANTE MD November 30, 2018 11:57
[2018-11-30 14:00] VITALS: BP 106/56
[2018-11-30] MEDS: RIVAROXABAN 15 MG TAB (XARELTO) PO SCH (17:43)
[2018-11-30] MEDS: D5W/0.45% SODIUM CHLORIDE 1,000 ML IV SCH (18:13)
[2018-11-30 21:00] VITALS: BP 116/72
[2018-11-30 22:00] VITALS: BP 116/72
[2018-12-01 06:00] VITALS: BP 121/77
[2018-12-01] MEDS: ceFAZolin SOD 1 GM in D5W MINI-BAG PLUS 50 ML IV SCH ×3 (06:35→22:28)
[2018-12-01] MEDS: methylPREDNISolone INJ 125 MG/2 ML VIAL (J2930) IV SCH ×2 (06:35→18:18)
[2018-12-01 06:39] LABS: BASO % 0.1 % (0.0-1.0); HEMATOCRIT 40.9 % (36.0-47.0); HEMOGLOBIN 13.7 g/dl (12.0-15.5); LYMPH # 1.4 10^3/uL (1.5-4.5); LYMPH % 11.3 % (24.0-44.0); MEAN CORPUSCULAR HEMOGLOBIN 32.2 pg (27.0-33.0); MEAN CORPUSCULAR HGB CONC 33.5 g/dl (32.0-36.5); MONO # 0.6 10^3/uL (0.0-0.8); NEUTROPHILS # 10.3 10^3/uL (1.8-7.7); PLATELET COUNT, AUTOMATED 212 10^3/uL (150-450); RED BLOOD COUNT 4.26 10^6/uL (4.00-5.40); WHITE BLOOD COUNT 12.4 10^3/uL (4.0-10.0)
[2018-12-01 07:07] LABS: BLOOD UREA NITROGEN 28 MG/DL (7-18); CALCIUM LEVEL 8.1 MG/DL (8.8-10.2); CARBON DIOXIDE LEVEL 26 MEQ/L (21-32); CHLORIDE LEVEL 106 MEQ/L (98-107); CREATININE FOR GFR 0.92 MG/DL (0.55-1.30); GLOMERULAR FILTRATION RATE > 60.0 (>32); GLUCOSE, FASTING 197 MG/DL (70-100); SODIUM LEVEL 138 MEQ/L (136-145)
[2018-12-01] MEDS: D5W/0.45% SODIUM CHLORIDE 1,000 ML IV SCH ×2 (08:10→22:26)
--- NOTE | 2018-12-01 09:42 | IPNPDOC ---
Date Seen The patient was seen on 12/01/18. Progress Note SUBJECTIVE: 88 Y female, h/o severe dementia brought from [facility] with right hand swelling and bullae admitted for possible virus or bacterial infection in her right hand she is more awake no events overnight Review of systems not available due to severe dementia PHYSICAL EXAMINATION: VITAL SIGNS: Please see below. GENERAL: non verbal, very demented, she is more awake and open her eyes; family member at bedside HEENT: atraumatic CARDIOVASCULAR: s1s2 irregular not tachycardia RESPIRATORY: clear no rales no wheezing ABDOMINAL: soft BS positive EXTREMITIES: swelling/redness with multiple blisters and big bullae in right hand; rash in her right thigh no change NEUROLOGICAL: non focal PSYCHOLOGICAL:demented without behavior disturbance LABORATORY DATA, IMAGING STUDIES, MICROBIOLOGY: Please see below. ASSESSMENT AND PLAN: 1. Bullous eruption of the right hand a large hemorrhagic bullous lesion Etiology of this is unknown. DD including virus infection like herpes, contact dermatitis, or autoimmune dermatitis like Pemphigus vulgaris will continue IV Ancef, IV Acyclovir and IV steroid Discussed with Bulk Pallet [employer] Dr Dominguez who will consult this patient 2. Atrial fibrillation, rate control and on Xarelto 3. Severe dementia, stable 4. Nutrition, she is on Puree diet 5. she is DNR/NRI VS, I&O, 24H, Fishbone Vital Signs/I&O Vital Signs Date Time Temp Pulse Resp B/P (MAP) Pulse Ox O2 Delivery O2 Flow Rate FiO2 12/01/18 06:00 97.9 109 19 121/77 (92) 93 11/29/18 20:00 2.0 11/29/18 15:40 Room Air I&O- Last 24 Hours up to 6 AM 12/01/18 06:00 Intake Total 1123 ml Balance 1123 ml Laboratory Data 24H LABS Laboratory Tests 2 12/01/18 06:24: Immature Granulocyte % (Auto) 0.6, White Blood Count 12.4H, Red Blood Count 4.26, Hemoglobin 13.7, Hematocrit 40.9, Mean Corpuscular Volume 96.0, Mean Corpuscular Hemoglobin 32.2, Mean Corpuscular Hemoglobin Concent 33.5, Red Cell Distribution Width 13.0, Platelet Count 212, Neutrophils (%) (Auto) 83.0H, Lymphocytes (%) (Auto) 11.3L, Monocytes (%) (Auto) 5.0, Eosinophils (%) (Auto) 0.0, Basophils (%) (Auto) 0.1, Neutrophils # (Auto) 10.3H, Lymphocytes # (Auto) 1.4L, Monocytes # (Auto) 0.6, Eosinophils # (Auto) 0.0, Basophils # (Auto) 0.0, Nucleated Red Blood Cells % (auto) 0.0, Anion Gap 6L, Glomerular Filtration Rate > 60.0, Blood Urea Nitrogen 28H, Creatinine 0.92, Sodium Level 138, Potassium Level 4.0, Chloride Level 106, Carbon Dioxide Level 26, Calcium Level 8.1L CBC/BMP Laboratory Tests 12/01/18 06:24 Red Blood Count 4.26, Mean Corpuscular Volume 96.0, Mean Corpuscular Hemoglobin 32.2, Mean Corpuscular Hemoglobin Concent 33.5, Red Cell Distribution Width 13.0, Neutrophils (%) (Auto) 83.0 H, Lymphocytes (%) (Auto) 11.3 L, Monocytes (%) (Auto) 5.0, Eosinophils (%) (Auto) 0.0, Basophils (%) (Auto) 0.1, Neutrophils # (Auto) 10.3 H, Lymphocytes # (Auto) 1.4 L, Monocytes # (Auto) 0.6, Eosinophils # (Auto) 0.0, Basophils # (Auto) 0.0, Calcium Level 8.1 L Microbiology Microbiology 11/29/18 Blood Culture - Preliminary, Resulted No Growth after 48 hours. All Specime... 11/29/18 Blood Culture - Preliminary, Resulted No Growth after 48 hours. All Specime... 11/29/18 Viral Culture, Received Pending ARELI INFANTE MD December 01, 2018 09:42
[2018-12-01] MEDS: SODIUM CHLORIDE 0.9% NASAL GEL 15GM (AYR) SCH ×2 (09:58→22:27)
[2018-12-01] MEDS: ACETAMINOPHEN TAB 650MG DOSE (2X325MG) PO PRN (09:58)
[2018-12-01] MEDS: ACYCLOVIR 500 MG in D5W MINI-BAG PLUS 100 ML IV SCH ×2 (12:08→23:08)
[2018-12-01 14:00] VITALS: BP 123/80
[2018-12-01] MEDS: RIVAROXABAN 15 MG TAB (XARELTO) PO SCH (18:18)
[2018-12-01 22:00] VITALS: BP 142/72
[2018-12-02] MEDS: methylPREDNISolone INJ 125 MG/2 ML VIAL (J2930) IV SCH ×2 (05:20→17:15)
[2018-12-02] MEDS: ceFAZolin SOD 1 GM in D5W MINI-BAG PLUS 50 ML IV SCH ×3 (05:20→22:15)
[2018-12-02 06:00] VITALS: BP 140/85
[2018-12-02 07:07] LABS: BASO % 0.1 % (0.0-1.0); EOS % 0.1 % (0.0-3.0); HEMATOCRIT 38.5 % (36.0-47.0); HEMOGLOBIN 12.6 g/dl (12.0-15.5); LYMPH # 1.2 10^3/uL (1.5-4.5); LYMPH % 10.5 % (24.0-44.0); MEAN CORPUSCULAR HEMOGLOBIN 30.4 pg (27.0-33.0); MEAN CORPUSCULAR HGB CONC 32.7 g/dl (32.0-36.5); MONO # 0.4 10^3/uL (0.0-0.8); MONO % 3.7 % (0.0-5.0); NEUTROPHILS # 9.7 10^3/uL (1.8-7.7); NEUTROPHILS % 84.9 % (36.0-66.0); PLATELET COUNT, AUTOMATED 229 10^3/uL (150-450); RED BLOOD COUNT 4.14 10^6/uL (4.00-5.40); WHITE BLOOD COUNT 11.4 10^3/uL (4.0-10.0)
[2018-12-02 07:29] LABS: BLOOD UREA NITROGEN 19 MG/DL (7-18); CALCIUM LEVEL 8.1 MG/DL (8.8-10.2); CARBON DIOXIDE LEVEL 26 MEQ/L (21-32); CHLORIDE LEVEL 104 MEQ/L (98-107); CREATININE FOR GFR 0.79 MG/DL (0.55-1.30); GLOMERULAR FILTRATION RATE > 60.0 (>32); GLUCOSE, FASTING 183 MG/DL (70-100); POTASSIUM SERUM 4.5 MEQ/L (3.5-5.1); SODIUM LEVEL 138 MEQ/L (136-145)
[2018-12-02] MEDS: SODIUM CHLORIDE 0.9% NASAL GEL 15GM (AYR) SCH ×2 (07:42→22:15)
--- NOTE | 2018-12-02 10:02 | IPNPDOC ---
Date Seen The patient was seen on 12/02/18. Progress Note SUBJECTIVE: 88 Y female, h/o severe dementia [facility] with right hand swelling and bullae and blisters admitted for possible virus or bacterial infection in her right hand she is more awake and alert no events overnight Review of systems not available due to severe dementia PHYSICAL EXAMINATION: VITAL SIGNS: Please see below. GENERAL: non verbal, very demented, she is more awake and open her eyes; family member at bedside HEENT: atraumatic CARDIOVASCULAR: s1s2 irregular not tachycardia RESPIRATORY: clear no rales no wheezing ABDOMINAL: soft BS positive EXTREMITIES: swelling/redness with multiple blisters and big bullae in right hand; rash in her right thigh no change NEUROLOGICAL: non focal PSYCHOLOGICAL:demented without behavior disturbance LABORATORY DATA, IMAGING STUDIES, MICROBIOLOGY: Please see below. ASSESSMENT AND PLAN: 1. Bullous eruption of the right hand a large hemorrhagic bullous lesion Etiology of this is unknown. DD including virus infection like herpes, contact dermatitis, or autoimmune dermatitis like Pemphigus vulgaris; will continue IV Ancef, IV Acyclovir and IV steroid Discussed with Salesperson [employer] Dr Dominguez who will consult this patient either today or tomorrow 2. Atrial fibrillation, rate control and on Xarelto 3. Severe dementia, stable 4. Nutrition, she is on Puree diet and [place] liquid 5. she is DNR/NRI VS, I&O, 24H, Fishbone Vital Signs/I&O Vital Signs Date Time Temp Pulse Resp B/P (MAP) Pulse Ox O2 Delivery O2 Flow Rate FiO2 12/02/18 06:00 96.6 109 18 140/85 (103) 94 11/29/18 20:00 2.0 11/29/18 15:40 Room Air I&O- Last 24 Hours up to 6 AM 12/02/18 06:00 Intake Total 2007.5 ml Output Total 0 ml Balance 2007.5 ml Laboratory Data 24H LABS Laboratory Tests 2 12/02/18 06:22: Immature Granulocyte % (Auto) 0.7, White Blood Count 11.4H, Red Blood Count 4.14, Hemoglobin 12.6, Hematocrit 38.5, Mean Corpuscular Volume 93.0, Mean Corpuscular Hemoglobin 30.4, Mean Corpuscular Hemoglobin Concent 32.7, Red Cell Distribution Width 12.7, Platelet Count 229, Neutrophils (%) (Auto) 84.9H, Lymphocytes (%) (Auto) 10.5L, Monocytes (%) (Auto) 3.7, Eosinophils (%) (Auto) 0.1, Basophils (%) (Auto) 0.1, Neutrophils # (Auto) 9.7H, Lymphocytes # (Auto) 1.2L, Monocytes # (Auto) 0.4, Eosinophils # (Auto) 0.0, Basophils # (Auto) 0.0, Nucleated Red Blood Cells % (auto) 0.0, Anion Gap 8, Glomerular Filtration Rate > 60.0, Blood Urea Nitrogen 19H, Creatinine 0.79, Sodium Level 138, Potassium Level 4.5, Chloride Level 104, Carbon Dioxide Level 26, Calcium Level 8.1L CBC/BMP Laboratory Tests 12/02/18 06:22 Red Blood Count 4.14, Mean Corpuscular Volume 93.0, Mean Corpuscular Hemoglobin 30.4, Mean Corpuscular Hemoglobin Concent 32.7, Red Cell Distribution Width 12.7, Neutrophils (%) (Auto) 84.9 H, Lymphocytes (%) (Auto) 10.5 L, Monocytes (%) (Auto) 3.7, Eosinophils (%) (Auto) 0.1, Basophils (%) (Auto) 0.1, Neut rophils # (Auto) 9.7 H, Lymphocytes # (Auto) 1.2 L, Monocytes # (Auto) 0.4, Eosinophils # (Auto) 0.0, Basophils # (Auto) 0.0, Calcium Level 8.1 L Microbiology Microbiology 11/29/18 Blood Culture - Preliminary, Resulted No Growth after 72 hours. All specime... 11/29/18 Blood Culture - Preliminary, Resulted No Growth after 72 hours. All specime... 11/29/18 Viral Culture, Received Pending ARELI INFANTE MD December 02, 2018 10:02
[2018-12-02] MEDS: ACYCLOVIR 500 MG in D5W MINI-BAG PLUS 100 ML IV SCH ×2 (11:52→22:55)
[2018-12-02] MEDS: D5W/0.45% SODIUM CHLORIDE 1,000 ML IV SCH ×2 (11:52→23:56)
[2018-12-02 14:00] VITALS: BP 145/95
[2018-12-02] MEDS: RIVAROXABAN 15 MG TAB (XARELTO) PO SCH (17:15)
[2018-12-02 22:00] VITALS: BP 144/93
[2018-12-03] MEDS: ceFAZolin SOD 1 GM in D5W MINI-BAG PLUS 50 ML IV SCH ×3 (05:27→20:58)
[2018-12-03] MEDS: methylPREDNISolone INJ 125 MG/2 ML VIAL (J2930) IV SCH ×2 (05:27→18:32)
[2018-12-03 06:00] VITALS: BP 137/90
[2018-12-03 06:17] LABS: BASO % 0.1 % (0.0-1.0); HEMATOCRIT 39.4 % (36.0-47.0); LYMPH # 1.2 10^3/uL (1.5-4.5); LYMPH % 11.9 % (24.0-44.0); MEAN CORPUSCULAR VOLUME 93.8 fl (80.0-96.0); MONO # 0.6 10^3/uL (0.0-0.8); MONO % 5.8 % (0.0-5.0); PLATELET COUNT, AUTOMATED 219 10^3/uL (150-450); WHITE BLOOD COUNT 9.9 10^3/uL (4.0-10.0)
--- NOTE | 2018-12-03 06:28 | CR.PDOC ---
General Date of Consultation: December 03, 2018 Referring Provider: ARELI INFANTE MD Attending Physician: ARELI INFANTE MD Consultation REASON FOR CONSULTATION: Blisters on right hand, arm, left hip HISTORY: Edie Marroquin is an 88-year-old nonverbal patient who came to the emergency room after she was found to have a swollen right hand with both hemorrhagic and serous bullae, as well as several geometric vesicles. She apparently woke up with this on the day of presentation. The patient is nonverbal so she is not able to describe at all what happened even with prompting or using gestures instead of verbalization. No known trauma but per one of her daughters she does spend many hours a day in wheelchair and the right arm is the one that preferentially hangs over the side. She has a history of atrial fibrillation and has severe dementia and is nonverbal with hypertension, osteoporosis, hyperlipidemia, irritable bowel syndrome. She is on chronic anticoagulant therapy for thromboembolic prophylaxis with Xarelto. Dermatology was consulted for evaluation. ID has also evaluated the patient. No evidence of recent anasarca. Unknown duration of furosemide usage. Patient underwent u/s at [facility] that did not find evidence of a DVT, radiograph did not find evidence of acute pathology of the hand. Afebrile. Labs: Max WBC at 12.4, CRP 1.01, sCr 0.79, blood cultures negative x 2, viral micro pending, AST/ALT 71/29. Patient was placed on IV Ancef, IV acyclovir, IV steroid. SURGICAL HISTORY: Knee arthroscopy, right hip arthroplasty, cholecystectomy, bunion surgery, pituitary resection, hysterectomy, cataract surgery. ALLERGIES: None known MEDICATIONS: Furosemide 20 mg twice a day, Toprol 50 mg three times a day, Xarelto 15 mg daily REVIEW OF SYSTEMS: Not obtainable. PHYSICAL EXAMINATION: Afebrile. 137/83. Heart rate is between 90 and 120, it is around 90 when she is at rest GENERAL APPEARANCE: Elderly, lying in bed. NAD. Nonverbal but did respond to simulated gesture to open her mouth and withdrew from painful stimuli of me evaluating the blisters on her right hand LUNGS: Nonlabored HEART: Not diffusely edematous, no anasarca appreciated EYES/MOUTH: EOMI, no erythema, no drainage, no sores visible SKIN/EXTREMITIES: No peripheral edema. Over her left hip there is a pink edematous plaque about 4 cm x 3 cm. Her right upper extremity has denuded erosion over the right shoulder, apparently this was a vesicle that was unroofed and cultured. Distally, she has a large hemorrhagic bullous lesion on the palm of the hand, dorsum of the hand has geometric vesicles to bullae, several appear tense, many of which have coalesced into large bullae. A few have erupted and are denuded. There is no purulent drainage, only hemorrhagic component likely 2/2 Xarelto ASSESSMENT: Mrs. Marroquin is an 88 year old WF with blistering over right hand, right shoulder, left hip that is most consistent with pressure induced bullous changes such as edema bullae > thermal induced blistering injury > bullous pemphigoid or drug-induced bullous eruption (to an agent like furosemide) >>> Fabian-Ananth syndrome (would have more widespread lesions with mouth, eyes, vaginal, anal lesions present as well with new medication culprit as likely cause in that case) >> herpes zoster > pemphigus vulgaris or pemphigus foliaceus. PLAN with recommendations: 1). Blistering rash - Would ensure patient is adequately turned every 2 hours per nursing protocol to ensure no area develops dependency. May consider placing arms above the head with support for 1-2 hour periods several times during the day to encourage fluid return to the central body - For extremities: Agree with Xeroform gauze placement on denuded areas, would place 4x4 over the Xeroform then wrap area with Kerlix - For hip to back: Would use OptiFoam or Allevyn to act as cushion - Should apply Vaseline or equivalent to skin at least daily, ensure adequate barrier placed in diaper region - For more thorough evaluation of possible cause, two biopsies performed of right hand bullae for HE and DIF, will follow up path, wound care instructions left with nursing staff on 4200, sutures to be removed two weeks after biopsy date. Used lido with epi 1:100,000 x 3 cc to anesthetize the area. A 4 mm punch tool was used for each biopsy. Consent obtained after discussing R/B/A with consent-providing daughter. - Follow up viral culture final result, bacterial cultures final no growth - Stop IV steroid, stop IV acyclovir. Switch IV Ancef to PO formulation to finish 10 day course Thank you for this interesting consult. Dermatology will continue to follow along with patient. I spent 35 minutes in direct patient care at the bedside and on the floor. Frank Saez MD FAAD Vital Signs/I&O Vital Signs Date Time Temp Pulse Resp B/P (MAP) Pulse Ox O2 Delivery O2 Flow Rate FiO2 12/02/18 22:00 98.0 93 20 144/93 (110) 98 11/29/18 20:00 2.0 11/29/18 15:40 Room Air I&O- Last 24 Hours up to 6 AM 12/03/18 06:00 Intake Total 2332.5 ml Balance 2332.5 ml Laboratory Data Labs 24H Laboratory Tests 2 12/02/18 06:22: Immature Granulocyte % (Auto) 0.7, White Blood Count 11.4H, Red Blood Count 4.14, Hemoglobin 12.6, Hematocrit 38.5, Mean Corpuscular Volume 93.0, Mean Corpuscular Hemoglobin 30.4, Mean Corpuscular Hemoglobin Concent 32.7, Red Cell Distribution Width 12.7, Platelet Count 229, Neutrophils (%) (Auto) 84.9H, Lymphocytes (%) (Auto) 10.5L, Monocytes (%) (Auto) 3.7, Eosinophils (%) (Auto) 0.1, Basophils (%) (Auto) 0.1, Neutrophils # (Auto) 9.7H, Lymphocytes # (Auto) 1.2L, Monocytes # (Auto) 0.4, Eosinophils # (Auto) 0.0, Basophils # (Auto) 0.0, Nucleated Red Blood Cells % (auto) 0.0, Anion Gap 8, Glomerular Filtration Rate > 60.0, Blood Urea Nitrogen 19H, Creatinine 0.79, Sodium Level 138, Potassium Level 4.5, Chloride Level 104, Carbon Dioxide Level 26, Calcium Level 8.1L 12/03/18 05:47: CBC/BMP Laboratory Tests 12/02/18 06:22 Red Blood Count 4.14, Mean Corpuscular Volume 93.0, Mean Corpuscular Hemoglobin 30.4, Mean Corpuscular Hemoglobin Concent 32.7, Red Cell Distribution Width 12.7, Neutrophils (%) (Auto) 84.9 H, Lymphocytes (%) (Auto) 10.5 L, Monocytes (%) (Auto) 3.7, Eosinophils (%) (Auto) 0.1, Basophils (%) (Auto) 0.1, Neutrophils # (Auto) 9.7 H, Lymphocytes # (Auto) 1.2 L, Monocytes # (Auto) 0.4, Eosinophils # (Auto) 0.0, Basophils # (Auto) 0.0, Calcium Level 8.1 L Microbiology Microbiology 11/29/18 Blood Culture - Preliminary, Resulted No Growth after 72 hours. All specime... 11/29/18 Blood Culture - Preliminary, Resulted No Growth after 72 hours. All specime... 11/29/18 Viral Culture, Received Pending Allergies Coded Allergies: No Known Allergies (Verified , 11/29/18) Home Medications Scheduled Chlorhexidine Gluconate (Chlorhexadine Gluconate) 473 Ml Mouthwash, 5 ML MT BID, (Reported) Furosemide (Lasix) 20 Mg Tab, 20 MG PO BID, (Reported) Metoprolol Tartrate (Lopressor) 50 Mg Tab, 50 MG PO TID, (Reported) Multivitamin (Multivitamins) 1 Cap Cap, 1 CAP PO DAILY, (Reported) Rivaroxaban (Xarelto) 15 Mg Tab, 15 MG PO QPM, (Reported) Sodium Chloride ([place] Saline Nasal Gel) 14.1 Gm Gel..gram., 1 DOSE NA BID, (Reported) Scheduled PRN Acetaminophen (Tylenol) 325 Mg Tablet, 650 MG PO Q4H PRN for PAIN, (Reported) Bisacodyl (Dulcolax) 10 Mg Sup, 10 MG DE DAILY PRN for CONSTIPATION, (Reported) Milk Of Magnesia (Milk of Magnesia) 2,400 Mg/10 Ml Oral.susp, 10 ML PO DAILY PRN for CONSTIPATION, (Reported) Sodium Phosphate,[place]-Dibasic (Enema Neblq-Yn-Xiz) 1 Vitaliy Vitaliy, 1 VITALIY DE DAILY PRN for CONSTIPATION, (Reported) FRANK SAEZ MD December 03, 2018 06:28
[2018-12-03 06:50] LABS: BLOOD UREA NITROGEN 15 MG/DL (7-18); CALCIUM LEVEL 7.7 MG/DL (8.8-10.2); CARBON DIOXIDE LEVEL 27 MEQ/L (21-32); CHLORIDE LEVEL 102 MEQ/L (98-107); CREATININE FOR GFR 0.72 MG/DL (0.55-1.30); GLOMERULAR FILTRATION RATE > 60.0 (>32); GLUCOSE, FASTING 208 MG/DL (70-100); SODIUM LEVEL 137 MEQ/L (136-145)
[2018-12-03] MEDS: D5W/0.45% SODIUM CHLORIDE 1,000 ML IV SCH (11:03)
[2018-12-03] MEDS: SODIUM CHLORIDE 0.9% NASAL GEL 15GM (AYR) SCH ×2 (11:03→20:58)
[2018-12-03] MEDS: ACYCLOVIR 500 MG in D5W MINI-BAG PLUS 100 ML IV SCH ×2 (11:03→23:44)
--- NOTE | 2018-12-03 13:14 | IPNPDOC ---
Text Note Date of Service The patient was seen on 12/03/18. NOTE Subjective: Patient seen and examined at bedside. Seen by dermatology yesterday. Daughter at bedside. No acute overnight events reported. Objective: VITAL SIGNS: Please see below. GENERAL: non verbal, NAD, lying comfortably in bed HEENT: NC/AT CARDIOVASCULAR: +S1SA2, irregular RESPIRATORY: clear no rales no wheezing ABDOMINAL: soft, +BS, NT EXTREMITIES: swelling/redness with multiple blisters and big bullae in right hand; rash in her right thigh LABORATORY DATA, IMAGING STUDIES, MICROBIOLOGY: Please see below. A/P: #Bullous eruption of the right hand a large hemorrhagic bullous lesion Etiology of this is unknown. DD including virus infection like herpes, contact dermatitis, or autoimmune dermatitis like Pemphigus vulgaris; will continue IV Ancef, IV Acyclovir and IV steroid Discussed with Facilities Management Executive Dr Dominguez who will consult this patient either today or tomorrow #Atrial fibrillation, rate controlled and on Xarelto #Severe dementia, stable # Nutrition, she is on Puree diet and [place] liquid #Code status - DNR/NRI VS,Fishbone, I+O VS, Fishbone, I+O Laboratory Tests 12/03/18 05:47 Red Blood Count 4.20, Mean Corpuscular Volume 93.8, Mean Corpuscular Hemoglobin 31.0, Mean Corpuscular Hemoglobin Concent 33.0, Red Cell Distribution Width 12.5, Neutrophils (%) (Auto) 81.0 H, Lymphocytes (%) (Auto) 11.9 L, Monocytes (%) (Auto) 5.8 H, Eosinophils (%) (Auto) 0.0, Basophils (%) (Auto) 0.1, Neutrophils # (Auto) 8.0 H, Lymphocytes # (Auto) 1.2 L, Monocytes # (Auto) 0.6, Eosinophils # (Auto) 0.0, Basophils # (Auto) 0.0, Calcium Level 7.7 L Vital Signs Date Time Temp Pulse Resp B/P (MAP) Pulse Ox O2 Delivery O2 Flow Rate FiO2 12/03/18 06:00 96.7 86 19 137/90 (106) 94 11/29/18 20:00 2.0 11/29/18 15:40 Room Air I&O- Last 24 Hours up to 6 AM 12/03/18 06:00 Intake Total 2332.5 ml Balance 2332.5 ml ALVINA IBARRA MD December 03, 2018 13:14
[2018-12-03 14:00] VITALS: BP 150/70
[2018-12-03] MEDS: RIVAROXABAN 15 MG TAB (XARELTO) PO SCH (18:32)
[2018-12-03 22:00] VITALS: BP 159/94
[2018-12-04] MEDS: D5W/0.45% SODIUM CHLORIDE 1,000 ML IV SCH (01:55)
[2018-12-04] MEDS: ceFAZolin SOD 1 GM in D5W MINI-BAG PLUS 50 ML IV SCH ×2 (05:09→14:27)
[2018-12-04] MEDS: methylPREDNISolone INJ 125 MG/2 ML VIAL (J2930) IV SCH (05:10)
[2018-12-04 06:00] VITALS: BP 140/98
[2018-12-04 06:35] LABS: BASO % 0.1 % (0.0-1.0); HEMATOCRIT 38.5 % (36.0-47.0); HEMOGLOBIN 13.1 g/dl (12.0-15.5); LYMPH # 1.1 10^3/uL (1.5-4.5); MEAN CORPUSCULAR VOLUME 91.2 fl (80.0-96.0); MONO # 0.6 10^3/uL (0.0-0.8); MONO % 5.7 % (0.0-5.0); NEUTROPHILS # 8.1 10^3/uL (1.8-7.7); NEUTROPHILS % 81.7 % (36.0-66.0); PLATELET COUNT, AUTOMATED 207 10^3/uL (150-450); RED BLOOD COUNT 4.22 10^6/uL (4.00-5.40); WHITE BLOOD COUNT 9.9 10^3/uL (4.0-10.0)
[2018-12-04 07:01] LABS: BLOOD UREA NITROGEN 16 MG/DL (7-18); CALCIUM LEVEL 7.8 MG/DL (8.8-10.2); CARBON DIOXIDE LEVEL 27 MEQ/L (21-32); CHLORIDE LEVEL 102 MEQ/L (98-107); CREATININE FOR GFR 0.81 MG/DL (0.55-1.30); GLOMERULAR FILTRATION RATE > 60.0 (>32); GLUCOSE, FASTING 210 MG/DL (70-100); SODIUM LEVEL 138 MEQ/L (136-145)
[2018-12-04] MEDS: SODIUM CHLORIDE 0.9% NASAL GEL 15GM (AYR) SCH ×2 (10:00→20:00)
[2018-12-04] MEDS: ACYCLOVIR 500 MG in D5W MINI-BAG PLUS 100 ML IV SCH (11:36)
[2018-12-04] MEDS: FUROSEMIDE 20 MG TAB PO SCH ×2 (11:37→18:00)
[2018-12-04 14:00] VITALS: BP 138/85
--- NOTE | 2018-12-04 17:20 | IPNPDOC ---
Text Note Date of Service The patient was seen on 12/04/18. NOTE Subjective: Patient seen and examined at bedside. Seen by dermatology last evening with bedside biopsy. Daughter at bedside. No acute overnight events reported. Objective: VITAL SIGNS: Please see below. GENERAL: non verbal, NAD, lying comfortably in bed HEENT: NC/AT CARDIOVASCULAR: +S1SA2, irregular RESPIRATORY: clear no rales no wheezing ABDOMINAL: soft, +BS, NT EXTREMITIES: bandages on right hand; rash in her right thigh LABORATORY DATA, IMAGING STUDIES, MICROBIOLOGY: Please see below. A/P: #Bullous eruption of the right hand - biopsy pending - d/w dermatology - assistance appreciated - recs to d/c anti-viral, taper off steroids, transition to PO abx - recs to d/c lasix if possible #Atrial fibrillation, rate controlled and on Xarelto #Severe dementia, stable # Nutrition, she is on Puree diet and [place] liquid #Code status - DNR/NRI Dispo: anticipating discharge tomorrow am VS,Fishbone, I+O VS, Fishbone, I+O Laboratory Tests 12/04/18 05:56 Red Blood Count 4.22, Mean Corpuscular Volume 91.2, Mean Corpuscular Hemoglobin 31.0, Mean Corpuscular Hemoglobin Concent 34.0, Red Cell Distribution Width 12.4, Neutrophils (%) (Auto) 81.7 H, Lymphocytes (%) (Auto) 11.0 L, Monocytes (%) (Auto) 5.7 H, Eosinophils (%) (Auto) 0.0, Basophils (%) (Auto) 0.1, Neutrophils # (Auto) 8.1 H, Lymphocytes # (Auto) 1.1 L, Monocytes # (Auto) 0.6, Eosinophils # (Auto) 0.0, Basophils # (Auto) 0.0, Calcium Level 7.8 L Vital Signs Date Time Temp Pulse Resp B/P (MAP) Pulse Ox O2 Delivery O2 Flow Rate FiO2 12/04/18 14:00 96.8 94 19 138/85 (102) 93 11/29/18 20:00 2.0 11/29/18 15:40 Room Air I&O- Last 24 Hours up to 6 AM 12/04/18 05:59 Intake Total 2551 ml Balance 2551 ml ALVINA IBARRA MD December 04, 2018 17:20
[2018-12-04] MEDS ORDERED: methylPREDNISolone INJ 40 MG/1 ML VIAL (J2920) IV ONE (17:30)
[2018-12-04] MEDS: RIVAROXABAN 15 MG TAB (XARELTO) PO SCH (17:59)
[2018-12-04] MEDS: CEPHALEXIN 500 MG CAP PO SCH (20:00)
[2018-12-04 22:00] VITALS: BP 153/92
[2018-12-05] MEDS ORDERED: methylPREDNISolone INJ 40 MG/1 ML VIAL (J2920) IV ONE (05:00)
[2018-12-05 06:00] VITALS: BP 150/92
[2018-12-05 06:36] LABS: BASO % 0.2 % (0.0-1.0); HEMATOCRIT 40.5 % (36.0-47.0); HEMOGLOBIN 13.9 g/dl (12.0-15.5); LYMPH # 1.2 10^3/uL (1.5-4.5); LYMPH % 10.8 % (24.0-44.0); MEAN CORPUSCULAR HEMOGLOBIN 31.1 pg (27.0-33.0); MEAN CORPUSCULAR HGB CONC 34.3 g/dl (32.0-36.5); MEAN CORPUSCULAR VOLUME 90.6 fl (80.0-96.0); MONO # 0.6 10^3/uL (0.0-0.8); NEUTROPHILS % 81.1 % (36.0-66.0); PLATELET COUNT, AUTOMATED 216 10^3/uL (150-450); RED BLOOD COUNT 4.47 10^6/uL (4.00-5.40); WHITE BLOOD COUNT 11.1 10^3/uL (4.0-10.0)
[2018-12-05 06:55] LABS: BLOOD UREA NITROGEN 21 MG/DL (7-18); CARBON DIOXIDE LEVEL 29 MEQ/L (21-32); CHLORIDE LEVEL 100 MEQ/L (98-107); CREATININE FOR GFR 0.82 MG/DL (0.55-1.30); GLOMERULAR FILTRATION RATE > 60.0 (>32); GLUCOSE, FASTING 191 MG/DL (70-100); POTASSIUM SERUM 4.2 MEQ/L (3.5-5.1); SODIUM LEVEL 138 MEQ/L (136-145)
[2018-12-05] MEDS ORDERED: CEPH500C PO (07:23)
[2018-12-05] MEDS: FUROSEMIDE 20 MG TAB PO SCH (09:01)
[2018-12-05] MEDS: CEPHALEXIN 500 MG CAP PO SCH (09:01)
[2018-12-05] MEDS: SODIUM CHLORIDE 0.9% NASAL GEL 15GM (AYR) SCH (09:01)
--- NOTE | 2018-12-05 10:50 | DS.PDOC ---
Discharge Summary General Date of Admission November 29, 2018 at 12:34 Date of Discharge 12/05/18 Specialist/Consultants Involve: FRANK SAEZ MD Discharge Summary PROCEDURES PERFORMED DURING STAY: right hand skin biopsy, DISCHARGE DIAGNOSES: 1. bullous eruption of skin of right hand 2. a-fib 3. severe dementia 4. dysphagia COMPLICATIONS/CHIEF COMPLAINT: Bullous Rash. HISTORY OF PRESENT ILLNESS: Edie Marroquin is an 88-year-old nonverbal patient who came to the emergency room after she was found to have a swollen right hand with both hemorrhagic and serous bullae, as well as some linear vesicles. She apparently woke up with this. The patient is nonverbal so she is not able to describe at all what happened. She did have some vesicles on her right shoulder as well, raising the possibility that this might be an unusual presentation for herpes zoster. There has been no known trauma. She has a history of atrial fibrillation and has severe dementia and is nonverbal, hypertension, osteoporosis, hyperlipidemia, irritable bowel syndrome. She is on chronic anticoagulant therapy for thromboembolic prophylaxis with Xarelto. HOSPITAL COURSE: Patient was admitted for further evaluation. Seen in consultation by dermatology regarding her bullous rash. Skin biopsies were o btained, and medications were adjusted - anti-viral, steroids discontinued. Continued antibiotic therapy, and diuretic therapy. Discharged back to [facility] in stable condition. DISCHARGE MEDICATIONS: Please see below. ALLERGIES: Please see below. Objective: VITAL SIGNS: Please see below. GENERAL: non verbal, NAD, lying comfortably in bed HEENT: NC/AT CARDIOVASCULAR: +S1SA2, irregular RESPIRATORY: clear no rales no wheezing ABDOMINAL: soft, +BS, NT EXTREMITIES: bandages on right hand; rash in her right thigh LABORATORY DATA: Please see below. ACTIVITY: [As tolerated]. DIET: puree diet/nectar liquid DISCHARGE PLAN: Return to [facility] DISCHARGE INSTRUCTIONS: 1. Follow up PCP in 3-5 days 2. Follow up dermatology as scheduled or within 7-10 days ITEMS TO FOLLOWUP ON ON OUTPATIENT: 1. skin biopsy results DISCHARGE CONDITION: [Stable]. TIME SPENT ON DISCHARGE: 37 minutes. Vital Signs/I&Os Vital Signs Date Time Temp Pulse Resp B/P (MAP) Pulse Ox O2 Delivery O2 Flow Rate FiO2 12/05/18 06:00 96.1 91 18 150/92 (111) 90 11/29/18 20:00 2.0 5/24/19 15:40 Room Air I&O- Last 24 Hours up to 6 AM 12/05/18 06:00 Intake Total 1107 ml Balance 1107 ml Laboratory Data Labs 24H Laboratory Tests 2 12/05/18 06:02: Immature Granulocyte % (Auto) 2.9, White Blood Count 11.1H, Red Blood Count 4.47, Hemoglobin 13.9, Hematocrit 40.5, Mean Corpuscular Volume 90.6, Mean Corpuscular Hemoglobin 31.1, Mean Corpuscular Hemoglobin Concent 34.3, Red Cell Distribution Width 12.5, Platelet Count 216, Neutrophils (%) (Auto) 81.1H, Lymphocytes (%) (Auto) 10.8L, Monocytes (%) (Auto) 5.0, Eosinophils (%) (Auto) 0.0, Basophils (%) (Auto) 0.2, Neutrophils # (Auto) 9.0H, Lymphocytes # (Auto) 1.2L, Monocytes # (Auto) 0.6, Eosinophils # (Auto) 0.0, Basophils # (Auto) 0.0, Nucleated Red Blood Cells % (auto) 0.3H, Anion Gap 9, Glomerular Filtration Rate > 60.0, Blood Urea Nitrogen 21H, Creatinine 0.82, Sodium Level 138, Potassium Level 4.2, Chloride Level 100, Carbon Dioxide Level 29, Calcium Level 8.0L CBC/BMP Laboratory Tests 12/05/18 06:02 Red Blood Count 4.47, Mean Corpuscular Volume 90.6, Mean Corpuscular Hemoglobin 31.1, Mean Corpuscular Hemoglobin Concent 34.3, Red Cell Distribution Width 12.5, Neutrophils (%) (Auto) 81.1 H, Lymphocytes (%) (Auto) 10.8 L, Monocytes (%) (Auto) 5.0, Eosinophils (%) (Auto) 0.0, Basophils (%) (Auto) 0.2, Neutrophils # (Auto) 9.0 H, Lymphocytes # (Auto) 1.2 L, Monocytes # (Auto) 0.6, Eosinophils # (Auto) 0.0, Basophils # (Auto) 0.0, Calcium Level 8.0 L Microbiology Microbiology 11/29/18 Blood Culture - Final, Complete NO GROWTH AFTER 5 DAYS 11/29/18 Blood Culture - Final, Complete NO GROWTH AFTER 5 DAYS 11/29/18 Viral Culture, Received Pending Discharge Medications Scheduled Cephalexin (Cephalexin) 500 Mg Capsule, 500 MG PO BID Chlorhexidine Gluconate (Chlorhexadine Gluconate) 473 Ml Mouthwash, 5 ML MT BID, (Reported) Furosemide (Lasix) 20 Mg Tab, 20 MG PO BID, (Reported) Metoprolol Tartrate (Lopressor) 50 Mg Tab, 50 MG PO TID, (Reported) Multivitamin (Multivitamins) 1 Cap Cap, 1 CAP PO DAILY, (Reported) Rivaroxaban (Xarelto) 15 Mg Tab, 15 MG PO QPM, (Reported) Sodium Chloride ([place] Saline Nasal Gel) 14.1 Gm Gel..gram., 1 DOSE NA BID, (Reported) Scheduled PRN Acetaminophen (Tylenol) 325 Mg Tablet, 650 MG PO Q4H PRN for PAIN, (Reported) Bisacodyl (Dulcolax) 10 Mg Sup, 10 MG SD DAILY PRN for CONSTIPATION, (Reported) Milk Of Magnesia (Milk of Magnesia) 2,400 Mg/10 Ml Oral.susp, 10 ML PO DAILY PRN for CONSTIPATION, (Reported) Sodium Phosphate,[place]-Dibasic (Enema Kswmq-Et-Kpy) 1 Vitaliy Vitaliy, 1 VITALIY SD DAILY PRN for CONSTIPATION, (Reported) Allergies Coded Allergies: No Known Allergies (Verified , 11/29/18) ALVINA IBARRA MD December 05, 2018 10:50
== END 2018-12-05 10:05 | DRG 596 ==
LOC: M ED 08:01 → EDBD 08:01 → M ED INP 12:34 → M MSPAV 15:40
PROVIDERS: ADMIT Family Medicine; ATTEND Internal Medicine
DX: L10.0 Pemphigus vulgaris (principal); I48.91 Unspecified atrial fibrillation; F03.90 Unspecified dementia, unspecified severity, without behavioral disturbance, psychotic disturbance, mood disturbance, and anxiety; R13.10 Dysphagia, unspecified; Z79.899 Other long term (current) drug therapy; I10 Essential (primary) hypertension; M81.0 Age-related osteoporosis without current pathological fracture; E78.5 Hyperlipidemia, unspecified; Z79.01 Long term (current) use of anticoagulants

== ENCOUNTER → 2018-12-03 | Outpatient (REF) | payer MEDICARE ==
[~2018-12-03] MED LIST changes: +ACET-907 PO; +CEPH500C PO; +CHLO0.124 MT; +MOM30SS PO; +SODIGEL
== END ==
LOC: M SFHCPLAZ 17:58
PROVIDERS: ATTEND Dermatology
DX: R21 Rash and other nonspecific skin eruption (principal)

== ENCOUNTER → 2018-12-10 | Outpatient (REF) | payer MEDICARE ==
[~2018-12-10] MED LIST changes: -TRAZ-160 PO; +TRAZ-252 PO
[2018-12-10 09:22] LABS: HEMATOCRIT 43.9 % (36.0-47.0); HEMOGLOBIN 14.3 g/dl (12.0-15.5); MEAN CORPUSCULAR HGB CONC 32.6 g/dl (32.0-36.5); MEAN CORPUSCULAR VOLUME 98.2 fl (80.0-96.0); PLATELET COUNT, AUTOMATED 179 10^3/uL (150-450); RED BLOOD COUNT 4.47 10^6/uL (4.00-5.40); WHITE BLOOD COUNT 9.3 10^3/uL (4.0-10.0)
[2018-12-10 10:26] LABS: BLOOD UREA NITROGEN 26 MG/DL (7-18); CALCIUM LEVEL 7.8 MG/DL (8.8-10.2); CARBON DIOXIDE LEVEL 28 MEQ/L (21-32); CHLORIDE LEVEL 104 MEQ/L (98-107); CREATININE FOR GFR 0.69 MG/DL (0.55-1.30); GLOMERULAR FILTRATION RATE > 60.0 (>32); GLUCOSE, FASTING 131 MG/DL (70-100); POTASSIUM SERUM 3.9 MEQ/L (3.5-5.1); SODIUM LEVEL 141 MEQ/L (136-145)
== END ==
PROVIDERS: ATTEND Internal Medicine
DX: D64.9 Anemia, unspecified (principal)

== ENCOUNTER → 2018-12-24 | Outpatient (REF) | payer MEDICARE ==
[2018-12-24 09:32] LABS: HEMOGLOBIN 13.2 g/dl (12.0-15.5); MEAN CORPUSCULAR HEMOGLOBIN 31.1 pg (27.0-33.0); MEAN CORPUSCULAR HGB CONC 32.2 g/dl (32.0-36.5); MEAN CORPUSCULAR VOLUME 96.7 fl (80.0-96.0); PLATELET COUNT, AUTOMATED 227 10^3/uL (150-450); RED BLOOD COUNT 4.24 10^6/uL (4.00-5.40)
[2018-12-24 10:02] LABS: BLOOD UREA NITROGEN 18 MG/DL (7-18); CALCIUM LEVEL 8.2 MG/DL (8.8-10.2); CARBON DIOXIDE LEVEL 31 MEQ/L (21-32); CHLORIDE LEVEL 107 MEQ/L (98-107); CREATININE FOR GFR 0.76 MG/DL (0.55-1.30); GLOMERULAR FILTRATION RATE > 60.0 (>32); GLUCOSE, FASTING 96 MG/DL (70-100); POTASSIUM SERUM 4.1 MEQ/L (3.5-5.1); SODIUM LEVEL 142 MEQ/L (136-145)
== END ==
PROVIDERS: ATTEND Physician Assistant
DX: I48.91 Unspecified atrial fibrillation (principal)

== ENCOUNTER → 2019-01-22 | Outpatient (REF) | payer MEDICARE ==
[2019-01-22 09:46] LABS: HEMATOCRIT 41.8 % (36.0-47.0); HEMOGLOBIN 13.6 g/dl (12.0-15.5); MEAN CORPUSCULAR HEMOGLOBIN 30.7 pg (27.0-33.0); MEAN CORPUSCULAR HGB CONC 32.5 g/dl (32.0-36.5); MEAN CORPUSCULAR VOLUME 94.4 fl (80.0-96.0); PLATELET COUNT, AUTOMATED 225 10^3/uL (150-450); RED BLOOD COUNT 4.43 10^6/uL (4.00-5.40)
[2019-01-22 10:04] LABS: BLOOD UREA NITROGEN 16 MG/DL (7-18); CALCIUM LEVEL 8.3 MG/DL (8.8-10.2); CARBON DIOXIDE LEVEL 27 MEQ/L (21-32); CHLORIDE LEVEL 108 MEQ/L (98-107); GLOMERULAR FILTRATION RATE > 60.0 (>32); GLUCOSE, FASTING 98 MG/DL (70-100); POTASSIUM SERUM 4.1 MEQ/L (3.5-5.1); SODIUM LEVEL 142 MEQ/L (136-145)
== END ==
PROVIDERS: ATTEND Internal Medicine
DX: I48.91 Unspecified atrial fibrillation (principal)

== ENCOUNTER → 2019-01-29 | Outpatient (REF) | payer MEDICARE | END | disposition home or self-care (01) | PROVIDERS: ATTEND Physician Assistant | DX: R31.9 Hematuria, unspecified (principal) ==